=== PATIENT | female | born 1995 | race African-American/Black ===

== ENCOUNTER 2020-12-29 09:05 | Emergency (ER) | payer OTHER, SELFPAY ==
--- NOTE | ~2020-12-29 | XR_ITS ---
EXAMINATION: XR chest 2V 12/29/2020 09:37 INDICATION: Chest pain and shortness of breath PROCEDURE: 2 view chest COMPARISON: No prior studies for comparison. FINDINGS: The lungs are clear. The cardiomediastinal silhouette is within normal limits. There are no pleural effusions. There is no pneumothorax suspected. There is scoliosis. IMPRESSION: 1: NO ACUTE CARDIOPULMONARY DISEASE. Reviewed, dictated and finalized at location B.
--- NOTE | ~2020-12-29 | XR_ITS ---
EXAMINATION: XR lumbar spine 2-3V DATE: 12/29/2020 11:13 INDICATION: Low back pain TECHNIQUE: Anteroposterior and lateral views of the lumbar spine, and cone-down lateral view of the l umbosacral junction were obtained. COMPARISON: None. FINDINGS: There is no fracture, dislocation, or subluxation. The vertebral body heights, alignment, a nd intervertebral disc spaces are normal. The paravertebral soft tissues are unremarkable. There is m ild lumbar dextrocurvature. IMPRESSION: 1. No acute osseous abnormality. Reviewed, dictated and finalized at location A.
[2020-12-29 09:12] VITALS: BP 144/96; PULSE 71; RESP 18; TEMP 36.5; O2SAT 98
--- NOTE | 2020-12-29 09:17 | ECG_ITS ---
Measurements Intervals [place] Rate: 76 P: 58 [place]: 172 QRS: 32 QRSD: 103 T: 19 QT: 385 QTc: 434 Interpretive Statements SINUS RHYTHM BASELINE ARTIFACT- I, II, III, AVR, AVL, AVF NORMAL ECG Electronically Signed On 12-29-2020 9:28:17 CDT by Jasmeet Light D.O.
[2020-12-29 09:31] LABS: Basophils Percent Auto 0.3 % (0.2-1.2); Eosinophils Absolute Auto 0.1 K/mm3 (0-0.3); Eosinophils Percent Auto 2.9 % (0-4.4); Hematocrit 38.8 % (37.0-47.0); Lymphocytes Absolute Auto 1.43 K/mm3 (0.9-3.2); Lymphocytes Percent Auto 41.4 % (18.3-44.2); Mean Corpuscular HGB Conc 30.9 g/dl (32-36); Mean Corpuscular Hemoglobin 29.1 pg (26-34); Mean Corpuscular Volume 93.9 fl (80-100); Mean Platelet Volume 10.3 fl (7.4-10.4); Monocytes Absolute Auto 0.3 K/mm3 (0.1-0.6); Neutrophils Absolute Auto 1.6 K/mm3 (1.3-6.7); Neutrophils Percent Auto 46.4 % (45.5-73.1); Platelet Count Result 275 k/mm3 (150-375); Red Blood Count 4.13 M/mm3 (4.2-5.4); Red Cell Distribution Width 12.2 % (11.5-14.5); White Blood Count 3.5 K/mm3 (4.5-10.0)
[2020-12-29 09:41] LABS: Prothrombin Time 13.6 Seconds (11.1-14.7)
[2020-12-29 09:42] LABS: Anion Gap 11 mmol/L (8-16); Blood Urea Nitrogen 20 mg/dL (7-17); Calcium 9.3 mg/dL (8.4-10.2); Carbon Dioxide 20 mmol/L (22-30); Chloride 110 mmol/L (98-107); Estimated CRCL calculation 89 ml/min; Estimated Glomerular Filt Rate > 60; Glucose 92 mg/dL (65-105); Partial Thromboplastin Time 27.7 SECONDS (22.3-36.8); Potassium 4.1 mmol/L (3.4-5.0); Sodium 141 mmol/L (137-145)
[2020-12-29 09:52] VITALS: O2SAT 100
[2020-12-29 09:54] LABS: Troponin I < 0.012 ng/mL (0.000-0.034)
[2020-12-29] MEDS: ASPIRIN 81 MG CHEWABLE TABLET 324 MG PO (10:00)
--- NOTE | 2020-12-29 10:52 | ED.CHESTPAIN ---
HPI - Chest Pain General Chief Complaint: Chest Pain Stated Complaint: back and rib pain Time Seen by Provider: 12/29/20 10:16 Source: patient Mode of arrival: ambulatory Limitations: no limitations History of Present Illness HPI narrative: This is a 25 year old female that presents to the ER for low back pain and left sided chest pain x 4 days. Reports the pain is sharp and intermittent. It is worse with movement. No known injury or trauma. Denies fever, cough, shortness of breath, or lower extremity edema. Related Data Home Medications Medication Instructions Recorded Confirmed No Home Medications 12/29/20 12/29/20 Allergies Allergy/AdvReac Type Severity Reaction Status Date / Time No Known Allergies Allergy Verified 12/29/20 09:49 Review of Systems Review of Systems: Narrative: CONSTITUTIONAL: Denies fever CARDIOVASCULAR: Reports chest pain. Denies edema. RESPIRATORY: Denies cough or dyspnea. MUSCULOSKELETAL: Reports back pain, joint pain, and myalgia. NEUROLOGIC: Denies numbness, or weakness. All systems reviewed & are unremarkable except as noted in HPI and below PMFSH Past Medical History Medical History (Updated 12/29/20 @ 12:41 by Queta Goetz PA-C) Marfan syndrome Social History Social History (Updated 12/29/20 @ 10:55 by Queta Goetz PA-C) Smoking status: Never smoker Gender identity (if verbalized by the patient): Female Exam Narrative: Exam Narrative: GENERAL: Well-appearing, well-nourished, and in no acute distress. HEAD: Normocephalic, atraumatic. EYES: EOMI. ENT: Mucous membranes moist. Oropharynx without tonsillar hypertrophy exudate or other lesions. CHEST: Clear to auscultation. No respiratory distress. No wheezes rales or rhonchi. Tender to palpation of left, anterior upper chest wall HEART: Regular rate and rhythm. No murmur heard. Normal peripheral pulses. BACK: No midline spinal tenderness EXTREMITIES: Normal range of motion. No edema. SKIN: Warm, dry, no rash. NEURO: No focal deficits. Alert and oriented x3. PSYCH: Normal mood and affect Course Vital Signs Vital signs: Vital Signs Temperature 97.7 F 12/29/20 09:12 Pulse Rate 71 12/29/20 09:12 Respiratory Rate 18 12/29/20 09:12 Blood Pressure 144/96 H 12/29/20 09:12 Pulse Oximetry 98 12/29/20 09:12 Temperature 97.7 F 12/29/20 09:12 Pulse Rate 71 12/29/20 09:12 Respiratory Rate 18 12/29/20 09:12 Blood Pressure 144/96 H 12/29/20 09:12 Pulse Oximetry 100 12/29/20 09:52 MDM - Chest Pain MDM Narrative Medical decision making narrative: Patient presents to the emergency department for low back pain and chest pain x4 days. No certain injury or trauma. Pain does seem to be musculoskeletal in nature. Reports she does have to do some lifting and bending at work. Her vitals are stable. She is afebrile and nontoxic-appearing. She is neurologically intact. CBC and metabolic panel without concerning findings. EKG without concerning changes and baseline troponin is negative. Chest x-ray lumbar spine x-rays are without acute abnormalities. Her heart score is a 1. I did order patient pain medication and additional laboratory studies. She refused these. Was instructed to rest, ice and take [id number] pain medication as needed. She is to follow-up with her primary care doctor. She was given warnings to return to the ER Lab Data Attestation: I reviewed the patient's lab results. Result diagrams: 12/29/20 09:26 12/29/20 09:26 Labs: Lab Results 12/29/20 12/29/20 12/29/20 Range/Units 09:26 09:26 09:26 WBC 3.5 L (4.5-10.0) K/mm3 RBC 4.13 L (4.2-5.4) M/mm3 Hgb 12.0 (12.0-15.0) g/dL Hct 38.8 (37.0-47.0) % MCV 93.9 (80-100) fl MCH 29.1 (26-34) pg MCHC 30.9 L (32-36) g/dl RDW 12.2 (11.5-14.5) % Plt Count 275 (150-375) k/mm3 MPV 10.3 (7.4-10.4) fl Immature Gran % (Auto) 0.0 (0-0.5) % N
[2020-12-29 10:59] LABS: D Dimer 0.27 ug/mL (<0.48)
--- NOTE | 2020-12-29 12:14 | PC.NURSE ---
pt refuses lab draw for 3 hour troponin at this time. EDP made aware.
[2020-12-29 12:53] VITALS: BP 145/98; PULSE 55; RESP 14; O2SAT 99
== END 2020-12-29 12:52 | disposition home or self-care (01) ==
PROVIDERS: Physician Assistant; Emergency Provider Emergency Medicine
DX: M54.5 Low back pain (principal); R07.9 Chest pain, unspecified; Q87.40 Marfan syndrome, unspecified
CPT/HCPCS: 36415; 71046; 72100; 80048; 84484; 85025; 85380; 85610; 85730; 93005; 99284; A9270

== ENCOUNTER 2022-04-29 01:52 | Emergency (ER) | payer OTHER, SELFPAY ==
--- NOTE | ~2022-04-29 | US_ITS ---
EXAMINATION: US pelvic complete w TV DATE: 04/29/2022 03:06 INDICATION: Right lower quadrant abdominal pain. Ovarian cyst. Evaluate for torsion. Comparison:No prior studies for comparison. TECHNIQUE: Multiple transabdominal and endovaginal sonographic images of the pelvis performed. FINDINGS: The uterus measures 8.1 x 4 x 5.6 cm. The endometrial complex measures 7 mm. The right ovary measures 4.5 x 2.4 x 4.2 cm and the left ovary measures 8.7 x 5.9 x 6.8 cm. There ar e small follicles in each ovary. Normal doppler signal in both ovaries. There is a simple cyst of the left ovary measuring 8.7 x 7.1 x 6.1 cm. There is no free fluid in the pelvis. There are no abnorma l masses seen on either side. IMPRESSION: 1. Left ovarian cyst measuring 8.7 cm maximum dimension. Recommend follow-up ultrasound in 4-6 weeks to assess for resolution. Reviewed, dictated and finalized at location A. IMPRESSION: 1. Left ovarian cyst measuring 8.7 cm maximum dimension. Recommend follow-up ul trasound in 4-6 weeks to assess for resolution.
--- NOTE | 2022-04-29 02:02 | ED.ABDPAIN ---
HPI - Abdominal Pain General Chief Complaint: Abdominal Pain Stated Complaint: LOW ABD PAIN Time Seen by Provider: 04/29/22 01:53 History of Present Illness HPI narrative: This is a 26-year-old female G1, P1, presenting with severe suprapubic abdominal pain. She states she noticed pain beginning this morning, described 10 out of 10, exacerbated by sitting, standing and attempting to use the bathroom. She denies dysuria. She was evaluated at outside hospital today with recommendation for transfer here for ultrasound to evaluate for torsion. I discussed this patient with physician at the outside hospital with the same recommendations. Patient was found to have a left ovarian cyst measuring measuring 7 x 7 cm without other acute intra-abdominal findings. Related Data Allergies Allergy/AdvReac Type Severity Reaction Status Date / Time No Known Allergies Allergy Verified 12/29/20 09:49 Review of Systems Review of Systems: CONSTITUTIONAL: Denies fever, chills, or sweats. EYES: Denies visual changes, redness, or discharge. ENT: Denies rhinorrhea, congestion, sore throat, or otalgia. CARDIOVASCULAR: Denies chest pain, palpitations, or edema. RESPIRATORY: Denies cough or dyspnea. GASTROINTESTINAL: Abdominal pain, denies nausea, vomiting, or diarrhea. GENITOURINARY: Denies dysuria or hematuria. SKIN: Denies rash or itching. MUSCULOSKELETAL: Denies back pain, joint pain, or myalgia. NEUROLOGIC: Denies headache, numbness, dizziness, or weakness. PSYCHIATRIC: Denies anxiety or depression. [facility] Past Medical History Medical History (Updated 04/30/22 @ 00:00 by Lulu Almonte) Marfan syndrome Social History Social History (Updated 12/29/20 @ 10:55 by Queta Goetz PA-C) Smoking status: Never smoker Gender identity (if verbalized by the patient): Female Exam Narrative: GENERAL: Well-developed, well-nourished, appears uncomfortable HEAD: Normocephalic, atraumatic. EYES: PERRLA and EOMI. ENT: Nares clear, no rhinorrhea or epistaxis. Mucous membranes moist. Oropharynx without tonsillar hypertrophy exudate or other lesions. NECK: Supple. No adenopathy or masses. No carotid bruits or JVD CHEST: Clear to auscultation. No respiratory distress. No wheezes rales or rhonchi HEART: Regular rate and rhythm. No murmur heard. Normal peripheral pulses. ABDOMEN: Soft, tender to palpation in the lower abdomen right greater than left with small amount of rebound tenderness on the right side, nondistended, normal active bowel sounds. EXTREMITIES: Normal range of motion. No edema. SKIN: Warm, dry, no rash. NEURO: No focal deficits. Alert and oriented x3. PSYCH: Normal mood and affect. Course Course Emergency Course: 04:15 - STAT rad Ultrasound shows an 8.6 x 6.8 left-sided ovarian cyst and multiple right-sided ovarian follicles. Both ovaries have normal vascularity are not concerning for torsion. No significant free pelvic fluid noted. Reassessed patient, she states she feels better. Labs demonstrate a white blood cell count of 11.6 with normal chemistries and a negative test. Discussed findings with recommendation to follow-up with her OB doctor for repeat imaging. Discussed return emergency precautions including signs/symptoms of acute abdomen and ovarian torsion. The patient voiced understanding is comfortable plan. All questions answered to her satisfaction. Vital Signs Vital signs: Vital Signs Temperature 98.3 F 04/29/22 02:07 Pulse Rate 82 04/29/22 02:07 Respiratory Rate 18 04/29/22 02:07 Blood Pressure 118/65 04/29/22 02:07 Pulse Oximetry 100 04/29/22 02:07 Temperature 98.3 F 04/29/22 02:07 Pulse Rate 82 04/29/22 02:07 Respiratory Rate 18 04/29/22 02:07 Blood Pressure 118/65 04/29/22 02:07 Pulse Oximetry 100 04/29/22 02:07 MDM - Abdominal Pain MDM Narrative Medical decision making narrative: Plan: Imaging, labs, pain control, reassess Differential Diagnosis D
[2022-04-29 02:07] VITALS: BP 118/65; PULSE 82; RESP 18; TEMP 36.8; O2SAT 100
[2022-04-29] MEDS: MORPHINE SULFATE (*CRX) 4 MG/ML INJ IV PUSH (02:22)
[2022-04-29] MEDS: ONDANSETRON INJ 4 MG/2 ML VIAL IV PUSH (02:22)
[2022-04-29 02:30] LABS: Basophils Percent Auto 0.2 % (0.2-1.2); Eosinophils Percent Auto 0.3 % (0-4.4); Hematocrit 36.8 % (37.0-47.0); Hemoglobin 11.7 g/dL (12.0-15.0); Immature Granulocyte Absolute 0.04 K/mm3 (0.00-0.031); Immature Granulocyte Percent A 0.3 % (0-0.5); Lymphocytes Absolute Auto 1.43 K/mm3 (0.9-3.2); Lymphocytes Percent Auto 12.3 % (18.3-44.2); Mean Corpuscular HGB Conc 31.8 g/dl (32-36); Mean Corpuscular Hemoglobin 29.9 pg (26-34); Mean Corpuscular Volume 94.1 fl (80-100); Mean Platelet Volume 10.5 fl (7.4-10.4); Monocytes Absolute Auto 0.9 K/mm3 (0.1-0.6); Monocytes Percent Auto 7.6 % (2.6-8.5); Neutrophils Absolute Auto 9.2 K/mm3 (1.3-6.7); Neutrophils Percent Auto 79.3 % (45.5-73.1); Platelet Count Result 291 k/mm3 (150-375); Red Blood Count 3.91 M/mm3 (4.2-5.4); Red Cell Distribution Width 12.7 % (11.5-14.5); White Blood Count 11.6 K/mm3 (4.5-10.0)
[2022-04-29 02:40] LABS: Alanine Aminotransferase 14 U/L (6-35); Albumin Level 4.3 g/dL (3.5-5.1); Alkaline Phosphatase 58 U/L (38-126); Anion Gap 9 mmol/L (8-16); Aspartate Amino Transferase 21 U/L (14-36); Bilirubin,Total 0.9 mg/dL (0.2-1.3); Blood Urea Nitrogen 13 mg/dL (7-17); Calcium 8.7 mg/dL (8.4-10.2); Carbon Dioxide 24 mmol/L (22-30); Chloride 105 mmol/L (98-107); Estimated Glomerular Filt Rate > 60; Glucose 98 mg/dL (65-110); Potassium 3.6 mmol/L (3.4-5.0); Sodium 138 mmol/L (137-145)
== END 2022-04-29 04:54 | disposition home or self-care (01) ==
PROVIDERS: Emergency Provider Preventive Medicine Aerospace Medicine
DX: N83.202 Unspecified ovarian cyst, left side (principal); Q87.40 Marfan syndrome, unspecified
CPT/HCPCS: 36415; 76830; 76856; 80053; 81025; 85025; 96374; 96375; 99284; J2270; J2405

== ENCOUNTER 2022-05-22 00:36 | Emergency (ER) | payer OTHER, SELFPAY ==
--- NOTE | ~2022-05-22 | CT_ITS ---
EXAMINATION: CT abdomen pelvis w con INDICATION: Right flank and lower quadrant pain TECHNIQUE: Computed tomographic images of the abdomen and pelvis were obtained after the administrati on of 100 cc of Omnipaque 350 intravenous contrast. The dose-length product (DLP) was 274.26 mGy-cm. Automated exposure control and iterative reconstruction technique were employed. COMPARISON: Ultrasound, 04/29/2022 FINDINGS: Minimal dependent atelectasis is present in the lung bases. The heart size is normal. The l iver, pancreas, gallbladder, and adrenal glands are normal. There is a 1.4 cm cyst or lymphangioma of the spleen. Cysts of the kidneys measure up to 1.9 cm on the left. No pathologically enlarged abdomi nal or pelvic lymph nodes are identified. There is no free intraperitoneal gas or evidence of bowel o bstruction. The appendix is not definitely identified. There is an 8.1 cm cystic lesion of the pelvis which appears to arise from the left ovary and exert mass effect on the uterus. There also appears t o be a 2.5 cm cyst of the right ovary. IMPRESSION: 1. Cystic lesions of the pelvis likely involving the left and right ovaries. Follow-up pelvic ultraso und in 6-10 weeks is recommended. Reviewed, dictated and finalized at location A. L COATER OPERATOR IMPRESSION: 1. Cystic lesions of the pelvis likely involving the left and right ovaries. Fo llow-up pelvic ultrasound in 6-10 weeks is recommended.
[2022-05-22 00:39] VITALS: BP 138/91; PULSE 70; RESP 20; TEMP 36.5; O2SAT 99
--- NOTE | 2022-05-22 01:03 | ED.FEMALEGU ---
HPI - Female Genitourinary General Chief complaint: Urogenital-Female <Queta Ordonez PA-C - Last Filed: 05/22/22 16:55> Stated complaint: SUPRAPUBID, FLANK, & SIDE PAIN X 1 WEEK <Queta Ordonez PA-C - Last Filed: 05/22/22 16:55> Time Seen by Provider: 05/22/22 00:41 <DEBRA Murillo Last Filed: 05/22/22 16:55> History of Present Illness HPI Narrative: Patient is a 26-year-old female with a history of Marfan syndrome and right-sided ovarian cyst here for evaluation of suprapubic, right flank pain and dysuria for the past week. The pain is sharp and stabbing in nature, unrelieved by Tylenol. Denies any nausea, vomiting, fevers or chills, chest pain or shortness of breath. Patient presented to the emergency department with similar complaints on April 29 of this year, was found to have a large ovarian cyst and was encouraged to follow-up with her PCP for resolution. This follow-up appointment was reportedly canceled and rescheduled by her primary. She is also requesting STI testing given that she has had abnormal, brown/bloody discharge over the past week as well. Patient has not been on control for the past 10 months and is sexually active. <Queta Ordonez PA-C - Last Filed: 05/22/22 16:55> Related Data Allergies/Adverse reactions: Allergies Allergy/AdvReac Type Severity Reaction Status Date / Time No Known Allergies Allergy Verified 05/22/22 00:43 <DEBRA Murillo Last Filed: 05/22/22 16:55> Review of Systems Review of Systems: Gen: Denies fevers or chills Eyes: Denies eye pain or visual change ENT: Denies congestion Respiratory: Denies shortness of breath or cough CV: Denies chest pain or palpitations GI: Denies abdominal pain nausea, emesis or diarrhea reports suprapubic abdominal pain, flank pain, dysuria Musculoskeletal: Denies back pain or muscle pain Neuro: Denies numbness, tingling, weakness or focal weakness Skin: Denies rash Except as documented, all other systems reviewed and negative <Queta Ordonez PA-C - Last Filed: 05/22/22 16:55> [facility] Past Medical History Medical History: Medical History Marfan syndrome <Queta Ordonez PA-C - Last Filed: 05/22/22 16:55> Social History Social History: Social History (Updated 12/29/20 @ 10:55 by Queta Goetz PA-C) Smoking status: Never smoker Gender identity (if verbalized by the patient): Female <Queta Ordonez PA-C - Last Filed: 05/22/22 16:55> Exam Narrative: APPEARANCE: Marfanoid habitus. Head: Normocephalic and atraumatic. EYES: PERRLA/EOMI, conjunctivae clear NOSE: No nasal drainage EARS: External ear normal in appearance THROAT: Oropharynx is clear. Mucous membranes are moist. NECK: Supple. No adenopathy, no masses. RESPIRATORY: Airway patent, respirations nonlabored. Clear to auscultation bilaterally, no rales, rhonchi, wheezing. CARDIOVASCULAR: Regular rate and rhythm without murmurs, rubs, or gallops. ABDOMINAL: No abdominal tenderness. Normoactive bowel sounds. Soft, nontender, nondistended. No rebound tenderness or guarding. : exam performed with store stock help kim. scant amount of white vaginal discharge noted in vault. no CMT. cervical os is closed. MUSCULOSKELETAL: No CVA tenderness. Extremities are warm and well-perfused. Moves all extremities well. No edema. NEURO: Normal speech. No focal neurologic deficits. SKIN: Skin is warm and dry. No rashes. PSYCHIATRIC: Normal affect/mood.. <Queta Ordonez PA-C - Last Filed: 05/22/22 16:55> Course [employer] ABATEMENT WORKER/PA Physician Supervision For this patient encounter, I reviewed the [employer]BE[employer] ABATEMENT WORKER or PA documentation, treatment plan, and medical decision making <Dustin Mccormick MD - Last Filed: 05/22/22 19:03> Vital Signs Vital signs: Vital Signs Temperature 97.7 F 05/22/22 00:39 Pulse Rate 70 05/22/22
[2022-05-22 01:14] LABS: Appearance Urine Clear (Clear); Bilirubin Urine 1+ (Negative); Blood Urine Negative (Negative); Color Urine Yellow (Yellow); Glucose Urine UA Negative (Negative); Ketones Urine 1+ mg/dL (Negative); Leukocyte Esterase Ur Trace LEU/UL (Negative); Nitrate Urine Negative (Negative); Protein Urine Trace mg/dL (Negative); Specific Grav Ur 1.025 (1.001-1.035); pH Urine 6.5 (5.0-9.0)
[2022-05-22 01:19] LABS: Add Urine Microscopic? YES; Mucus Urine Heavy /lpf; Squamous Epithelial Cell Urine Moderate /hpf (Few)
[2022-05-22] MEDS: SODIUM CHLORIDE 0.9% IV 1,000 ML 999 ML IV CONT (01:35)
[2022-05-22 01:40] LABS: Basophils Percent Auto 0.4 % (0.2-1.2); Eosinophils Absolute Auto 0.1 K/mm3 (0-0.3); Eosinophils Percent Auto 1.1 % (0-4.4); Hematocrit 33.8 % (37.0-47.0); Hemoglobin 10.6 g/dL (12.0-15.0); Immature Granulocyte Absolute 0.01 K/mm3 (0.00-0.031); Immature Granulocyte Percent A 0.2 % (0-0.5); Lymphocytes Absolute Auto 1.18 K/mm3 (0.9-3.2); Lymphocytes Percent Auto 22.3 % (18.3-44.2); Mean Corpuscular HGB Conc 31.4 g/dl (32-36); Mean Corpuscular Hemoglobin 29.7 pg (26-34); Mean Corpuscular Volume 94.7 fl (80-100); Mean Platelet Volume 10.5 fl (7.4-10.4); Monocytes Absolute Auto 0.5 K/mm3 (0.1-0.6); Monocytes Percent Auto 8.9 % (2.6-8.5); Neutrophils Absolute Auto 3.5 K/mm3 (1.3-6.7); Neutrophils Percent Auto 67.1 % (45.5-73.1); Platelet Count Result 332 k/mm3 (150-375); Red Blood Count 3.57 M/mm3 (4.2-5.4); Red Cell Distribution Width 12.5 % (11.5-14.5); White Blood Count 5.3 K/mm3 (4.5-10.0)
[2022-05-22 01:50] LABS: Alanine Aminotransferase 14 U/L (6-35); Albumin Level 4.1 g/dL (3.5-5.1); Alkaline Phosphatase 65 U/L (38-126); Anion Gap 9 mmol/L (8-16); Aspartate Amino Transferase 26 U/L (14-36); Bilirubin,Total 0.4 mg/dL (0.2-1.3); Blood Urea Nitrogen 15 mg/dL (7-17); Calcium 8.5 mg/dL (8.4-10.2); Carbon Dioxide 24 mmol/L (22-30); Chloride 106 mmol/L (98-107); Estimated Glomerular Filt Rate > 60; Glucose 106 mg/dL (65-110); Potassium 3.6 mmol/L (3.4-5.0); Sodium 139 mmol/L (137-145)
--- NOTE | 2022-05-22 02:04 | PC.NURSE ---
Patient taken to CT via stretcher at this time.
[2022-05-22 03:41] VITALS: BP 143/96; PULSE 79; RESP 17; O2SAT 100
== END 2022-05-22 03:55 | disposition home or self-care (01) ==
PROVIDERS: Physician Assistant; Emergency Provider Emergency Medicine; PCP Family Medicine
DX: N39.0 Urinary tract infection, site not specified (principal)
CPT/HCPCS: 36415; 74177; 80053; 81001; 81025; 85025; 87070; 87077; 87491; 87591; 87808; 96360; 99284; J7030; Q9967

== ENCOUNTER 2023-06-05 18:02 | Emergency (ER) | payer MEDICAID, SELFPAY ==
[2023-06-05 18:01] VITALS: BP 160/95; PULSE 71; RESP 18; O2SAT 100
[2023-06-05 18:11] VITALS: TEMP 36.3
--- NOTE | 2023-06-05 18:52 | ED.NAVMDI ---
HPI - Nausea/Vomiting/Diarrhea General Chief complaint: Nausea/Vomiting/Diarrhea <Montse Lilly PA-C - Last Filed: 06/05/23 19:52> Stated complaint: headache, neck pain, nausea x 2 weeks <Montse Lilly PA-C - Last Filed: 06/05/23 19:52> Time Seen by Provider: 06/05/23 18:27 <Montse Lilly PA-C - Last Filed: 06/05/23 19:52> History of Present Illness HPI Narrative: 27-year-old female with history of Marfan's reports for evaluation for no headache times 3-4 weeks. Patient states the headache is in the left side of her head and extends down into her back. States she has been seen twice at [facility] emergency department with [address] scans[address] She was sent home with ibuprofen and Tylenol which has not improved her symptoms. States she vomited a few times yesterday and had 1 episode of diarrhea. She reports associated nausea and photophobia throughout the course of her headache. Denies vision changes, seizures, loss of consciousness, head trauma,chest pain, fever, nuchal rigidity, abdominal pain, urinary complaints. <Montse Lilly PA-C - Last Filed: 06/05/23 19:52> Related Data Allergies/Adverse reactions: Allergies Allergy/AdvReac Type Severity Reaction Status Date / Time No Known Allergies Allergy Verified 05/22/22 00:43 <Montse Lilly PA-C - Last Filed: 06/05/23 19:52> Review of Systems Review of Systems: CONSTITUTIONAL: Denies fever, chills, or sweats. EYES: Denies visual changes, redness, or discharge. ENT: Denies rhinorrhea, congestion, sore throat, or otalgia. CARDIOVASCULAR: Denies chest pain, palpitations, or edema. RESPIRATORY: Denies cough or dyspnea. GASTROINTESTINAL: Denies abdominal pain, nausea, vomiting, or diarrhea. GENITOURINARY: Denies dysuria or hematuria. SKIN: Denies rash or itching. MUSCULOSKELETAL: see HPI NEUROLOGIC: see HPI PSYCHIATRIC: Denies anxiety or depression. <DEBRA Swan Last Filed: 06/05/23 19:52> PMFSH Past Medical History Medical History: Medical History Marfan syndrome <Montse Lilly PA-C - Last Filed: 06/05/23 19:52> Social History Social History: Social History Smoking status: Never smoker Gender identity (if verbalized by the patient): Female <Montse Lilly PA-C - Last Filed: 06/05/23 19:52> Exam Narrative: GENERAL: Well-appearing, well-nourished, and in no acute distress. patient resting comfortably in exam bed. She is pleasant and conversational. HEAD: Normocephalic, atraumatic. no overlying rashes or changes to scalp. Tender left occipital lymph node without overlying skin changes. No tenderness to light touch over temporal arteries. EYES: Left pupil round and reactive to light. 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 Normal conjunctiva and sclera. EOMI. ENT: Nares clear, no rhinorrhea or epistaxis. Mucous membranes moist. NECK: Supple. No nuchal rigidity. Tenderness over the L trapezius. No midline cervical spinous tenderness, step offs or deformities. CHEST: Clear to auscultation. No respiratory distress. HEART: Regular rate and rhythm. No murmur heard. Normal peripheral pulses. ABDOMEN: Soft, nontender, nondistended, normal active bowel sounds. No CVA tenderness EXTREMITIES: Normal range of motion. No edema. SKIN: Warm, dry, no rash. NEURO: No focal deficits. Alert and oriented x3. cranial nerves 2-12 intact. Strength 5/5 in BUE and BLE. Sensation intact throughout. Normal [id number]. No pronator drift. <Montse Lilly PA-C - Last Filed: 06/05/23 19:52> Course SEMICONDUCTOR PROCESSOR/PA Physician Supervision This visit was performed by both a physician and an APC. I performed all aspects of the MDM as documented. <Akilah Pretty MD - Last Filed: 06/05/23 21:02> Vital Signs Vital signs: Vital Signs Pulse Rate 71 06/05/23 18:01 Resp
[2023-06-05] MEDS: SODIUM CHLORIDE 0.9% IV 1,000 ML 999 ML IV CONT (18:56)
[2023-06-05] MEDS: diphenhydrAMINE HCl INJ 50 MG/ML VIAL 25 MG IV PUSH (18:59)
[2023-06-05] MEDS: PROCHLORPERAZINE EDISYLATE 10 MG/2 ML VIAL IV PUSH (19:00)
[2023-06-05] MEDS: KETOROLAC 30 MG/ML VIAL (*BKC) IV PUSH (19:02)
[2023-06-05 19:04] VITALS: BP 161/107; PULSE 73; RESP 17; O2SAT 100
[2023-06-05 19:13] LABS: Basophils Percent Auto 0.4 % (0.2-1.2); Eosinophils Absolute Auto 0.1 K/mm3 (0-0.3); Eosinophils Percent Auto 1.5 % (0-4.4); Hematocrit 37.6 % (37.0-47.0); Hemoglobin 11.6 g/dL (12.0-15.0); Immature Granulocyte Absolute 0.01 K/mm3 (0.00-0.031); Immature Granulocyte Percent A 0.2 % (0-0.5); Lymphocytes Absolute Auto 1.49 K/mm3 (0.9-3.2); Lymphocytes Percent Auto 27.9 % (18.3-44.2); Mean Corpuscular HGB Conc 30.9 g/dl (32-36); Mean Corpuscular Hemoglobin 28.8 pg (26-34); Mean Corpuscular Volume 93.3 fl (80-100); Mean Platelet Volume 11.1 fl (7.4-10.4); Monocytes Absolute Auto 0.6 K/mm3 (0.1-0.6); Monocytes Percent Auto 10.3 % (2.6-8.5); Neutrophils Absolute Auto 3.2 K/mm3 (1.3-6.7); Neutrophils Percent Auto 59.7 % (45.5-73.1); Platelet Count Result 335 k/mm3 (150-375); Red Blood Count 4.03 M/mm3 (4.2-5.4); White Blood Count 5.4 K/mm3 (4.5-10.0)
--- NOTE | 2023-06-05 19:13 | PC.NURSE ---
Assumed care of pt from MANOLO Gregg at this time.
[2023-06-05 19:24] LABS: Alanine Aminotransferase 11 U/L (6-35); Alkaline Phosphatase 58 U/L (38-126); Anion Gap 10 mmol/L (8-16); Aspartate Amino Transferase 20 U/L (14-36); Bilirubin,Total 0.5 mg/dL (0.2-1.3); Blood Urea Nitrogen 15 mg/dL (7-17); Calcium 8.8 mg/dL (8.4-10.2); Carbon Dioxide 25 mmol/L (22-30); Chloride 105 mmol/L (98-107); Estimated CRCL calculation 146 ml/min; Estimated Glomerular Filt Rate > 60; Glucose 90 mg/dL (65-110); Potassium 3.4 mmol/L (3.4-5.0); Sodium 140 mmol/L (137-145)
[2023-06-05 19:43] LABS: SPREG INTERNAL CONTROL Positive; Serum Qual hCG Negative
[2023-06-05 19:49] LABS: Influenza A QL RT-PCR Negative (Negative); Influenza B QL RT-PCR Negative (Negative); SARS-CoV-2 RNA PCR Negative (Negative)
[2023-06-05 19:57] VITALS: BP 132/77; PULSE 75; RESP 20; O2SAT 100
== END 2023-06-05 19:57 | disposition home or self-care (01) ==
PROVIDERS: Emergency Provider Physician Assistant; PCP Family Medicine
DX: G44.52 New daily persistent headache (NDPH) (principal); Q13.0 Coloboma of iris; Z20.822 Contact with and (suspected) exposure to COVID-19; Q87.40 Marfan syndrome, unspecified
CPT/HCPCS: 36415; 80053; 84703; 85025; 87636; 96361; 96374; 96375; 99284; J0780; J1200; J1885; J7030